=== PATIENT | male | born 1995 | race Caucasian/White ===

== ENCOUNTER 2020-04-08 14:52 | Emergency (ER) | payer SELFPAY ==
[~2020-04-08] VITALS: Ht 172.7 cm; Wt 74.8 kg
[2020-04-08 15:02] VITALS: BP 141/78
--- NOTE | 2020-04-08 15:05 | NUR ---
C/O COUGH , SUBJECTIVE FEVER X 4 DAYS. ORAL TEMP 97.9 , O2 SAT 99% AT THIS TIME. PMH: DENIES
--- NOTE | 2020-04-08 15:05 | NUR ---
Ming arnold in EDM - 04/08/20 at 1601 by MED1 C/O COUGH , SUBJECTIVE FEVER X 4 DAYS. ORAL TEMP 97.9 , O2 SAT 99% AT THIS TIME. PMH: ELISEO
[2020-04-08 16:08] VITALS: BP 141/78
--- NOTE | 2020-04-08 16:08 | NUR ---
Patient discharged with v/s stable. Written and verbal after care instructions given and explained. Patient alert, oriented and verbalized understanding of instructions. Ambulatory with steady gait. All questions addressed prior to discharge. ID band removed. Patient advised to follow up with PMD. Rx of IBUPROFEN & PROMETHAZINE given. Patient educated on indication of medication including possible reaction and side effects. Opportunity to ask questions provided and answered.
== END 2020-04-08 16:08 | disposition home or self-care (01) ==
LOC: MED 14:52
DX: B34.9 Viral infection, unspecified (principal); Z20.828 Contact with and (suspected) exposure to other viral communicable diseases
CPT/HCPCS: 99283